=== PATIENT | male | born 1970 | race Caucasian/White ===

== ENCOUNTER → 2019-04-16 | Outpatient (CLI) | payer MEDICARE, MEDICAID ==
--- NOTE | 2019-04-16 11:53 | RADIOLOGY IMAGING REPORT ---
FAC[place] [facility] [place] NAME: Vick Cosme : 1970 MR: [id number] V: [id number] EXAM DATE: ORDERING PHYSICIAN: LEXIS DEY TECHNOLOGIST: Location: [facility] - [place] Patient: Vick Cosme : 1970 Visit/Account:[id number] Date of Sevice: 04/16/2019 Exam type: CHEST PA LAT History: Sarcoidosis follow-up Comparison: December 15, 2015. Findings: Calcified hilar mediastinal lymph nodes again seen. Pleural parenchymal scarring throughout the lung s also appears relatively stable. No new areas of pulmonary consolidation are identified. The cardi ac silhouette appears normal. IMPRESSION: 1. Calcified hilar mediastinal lymph nodes and bilateral pleural parenchymal scarring appears relati vely stable when compared to the prior study Report Dictated By: Allison Rivera MD at 04/16/2019 11:44 AM Report E-Signed By: Allison Rivera MD at 04/16/2019 11:45 AM WSN:[email or web address]
== END ==
LOC: RAD 08:55
PROVIDERS: ATTEND Internal Medicine
DX: D86.9 Sarcoidosis, unspecified (principal)
CPT/HCPCS: 71046

== ENCOUNTER → 2019-04-17 | Outpatient (CLI) | payer MEDICARE, MEDICAID | LOC: LAB 09:19 | PROVIDERS: ATTEND Family Medicine | DX: E78.00 Pure hypercholesterolemia, unspecified (principal) | CPT/HCPCS: 36415; 82465; 83718; 84478 ==

== ENCOUNTER → 2019-04-17 | Outpatient (CLI) | payer MEDICARE, MEDICAID ==
[2019-04-17 09:42] LABS: PLATELET COUNT, AUTOMATED 297 K/uL (150-450)
== END ==
LOC: LAB 09:19
PROVIDERS: ATTEND Internal Medicine
DX: D86.9 Sarcoidosis, unspecified (principal)
CPT/HCPCS: 36415; 82040; 82247; 82306; 82310; 82374; 82435; 82565; 82947; 84075; 84132; 84155; 84295; 84450; 84460; 84520; 85025